=== PATIENT | female | born 1985 | race Caucasian/White ===

== ENCOUNTER 2017-06-16 11:28 | Emergency (ER) | payer BC, OTHER ==
--- NOTE | 2017-06-16 11:39 | UC ---
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 - History of Current Complaint Stated Complaint: WEAK,NAUSEOUS Time Seen by Provider: 06/16/17 11:39 Hx Obtained From: Patient Hx Last Menstrual Period: 04/17/16 Onset/Duration: Sudden Onset Onset Severity: Moderate Current Severity: Moderate - Allergy/Home Medications Allergies/Adverse Reactions: Allergies Allergy/AdvReac Type Severity Reaction Status Date / Time No Known Allergies Allergy Verified 06/16/17 11:43 PMH/Surg Hx/FS Hx/Imm Hx Previously Healthy: Yes - Surgical History Surgical History: Yes Surgery Procedure, Year, and Place: Left Breast Biopsy, 2009, [place]; Cone Biopsy, 2008, [place]; Left Inguinal Herniorrhaphy, 1995, [place] - Family History Known Family History: Negative: Cardiac Disease, Hypertension, Diabetes, Respiratory Disease - Social History Alcohol Use: Occasionally Substance Use Type: None Smoking Status (MU): Never Smoked Tobacco - Immunization History Most Recent Influenza Vaccination: Not the Season Review of Systems Constitutional: Fatigue Skin: Negative Eyes: Negative ENT: Negative Respiratory: Negative Cardiovascular: Negative Gastrointestinal: Negative Genitourinary: Negative Motor: Negative Neurovascular: Negative Musculoskeletal: Negative Neurological: Headache, Numbness Psychological: Negative All Other Systems Reviewed And Are Negative: Yes Physical Exam Triage Information Reviewed: Yes Vital Signs Reviewed: Yes Eye Exam: Normal ENT Exam: Normal Dental Exam: Normal Neck exam: Normal Neck: Positive: 1 Respiratory Exam: Normal Cardiovascular Exam: Normal Abdominal Exam: Normal Musculoskeletal Exam: Normal Neurological Exam: Normal Psychological Exam: Normal Skin Exam: Normal Course/Dx - Differential Dx - Multi-Symptom Provider Diagnoses: SYNCOPE. FATIGUE Discharge - Discharge Plan Condition: Stable Disposition: HOME Patient Education Materials: Urinary Incontinence (ED), Weakness (ED) Referrals: Non Staff,Doctor [Primary Care Provider] - Additional Instructions: PATIENT SUGGESTED TO GO TO ER FOR FURTHER WORKUP.
[2017-06-16 11:43] VITALS: BP 106/69
== END 2017-06-16 12:27 | disposition home or self-care (01) ==
LOC: UCCORT 11:28
DX: R55 Syncope and collapse (principal); R53.83 Other fatigue
CPT/HCPCS: 99212; G0463